=== PATIENT | male | born 1985 | race African-American/Black ===

== ENCOUNTER 2018-01-26 21:56 | Emergency (ER) | payer SELFPAY ==
[2018-01-26 22:02] VITALS: BP 158/92
[2018-01-26] MEDS ORDERED: LIDOCAINE 2% JELLY 5 ML TUBE TOP ONE (23:30)
[2018-01-26] MEDS ORDERED: AMOXICILLIN TRIHYDRATE 500 MG CAPSULE PO ONE (23:30)
--- NOTE | 2018-01-26 23:37 | ER Document Report ---
ED General - General Chief Complaint: Ear Pain Stated Complaint: EARACHE Time Seen by Provider: 01/26/18 23:16 Notes: Patient is a 32-year-old male without past medical history who presents with left ear pain for the past 1 week. Patient does described as a severe, constant throbbing pain to the left ear. He notes some loss of hearing to the ear. He has not tried anything to improve his pain. Nothing worsens this pain. He denies any drainage from the ear. No fever or constitutional symptoms although he does note that he has had some cervical chain lymphadenopathy on the left side. He has not seen his primary care doctor regarding today's concerns. He denies any history of similar symptoms in the past. TRAVEL OUTSIDE OF THE [place] IN LAST 30 DAYS: No - Related Data Allergies/Adverse Reactions: No Known Allergies Allergy (Unverified 01/26/18 21:58) Past Medical History - General Information source: Patient - Social History Smoking Status: Never Smoker Frequency of alcohol use: None Drug Abuse: None Lives with: Spouse/Significant other Family History: Reviewed & Not Pertinent Review of Systems - Review of Systems Notes: Constitutional: Negative for fever. HENT: Negative for sore throat. Positive for left ear pain Eyes: Negative for visual changes. Cardiovascular: Negative for chest pain. Respiratory: Negative for shortness of breath. Gastrointestinal: Negative for abdominal pain, vomiting or diarrhea. Genitourinary: Negative for dysuria. Musculoskeletal: Negative for back pain. Skin: Negative for rash. Neurological: Negative for headaches, weakness or numbness. 10 point ROS negative except as marked above and in HPI. Physical Exam - Vital signs Vitals: Temp Pulse Resp BP Pulse Ox 98.0 F 93 18 158/92 H 96 01/26/18 22:01 01/26/18 22:01 01/26/18 22:01 01/26/18 22:01 01/26/18 22:01 Interpretation: Hypertensive Notes: PHYSICAL EXAMINATION: GENERAL: Appears mildly uncomfortable but no acute distress HEAD: Atraumatic, normocephalic. EYES: Pupils equal round and reactive to light, extraocular movements intact, sclera anicteric, conjunctiva are normal. ENT: nares patent, oropharynx clear without exudates. Moist mucous membranes. Left TM is erythematous, bulge, without purulent effusion. Right TM is clear. NECK: Normal range of motion, left-sided anterior cervical lymphadenopathy is present LUNGS: Breath sounds clear to auscultation bilaterally and equal. No wheezes rales or rhonchi. HEART: Regular rate and rhythm without murmurs ABDOMEN: Soft, nontender, normoactive bowel sounds. No guarding, no rebound. No masses appreciated. EXTREMITIES: Normal range of motion, no pitting or edema. No cyanosis. NEUROLOGICAL: No focal neurological deficits. Moves all extremities spontaneously and on command. PSYCH: Normal mood, normal affect. SKIN: Warm, Dry, normal turgor, no rashes or lesions noted. Course - Re-evaluation Re-evalutation: 01/26/18 23:31 Patient presents with acute otitis media of the left ear. There is a bulging erythematous tympanic membrane with a purulent effusion on the left. No evidence of otitis externa. No evidence of a perforation. There is mild anterior cervical lymphadenopathy that is tender to palpation. Examination is otherwise unremarkable. Patient is otherwise extremely well in appearance. Vitals within acceptable limits. He has been started on amoxicillin and topical lidocaine for pain control. At this time will discharge with return precautions and follow-up recommendations. Verbal discharge instructions given a the bedside and opportunity for questions given. Medication warnings reviewed. Patient is in agreement with this plan and has verbalized understanding of return precautions and the need for primary care follow-up in the next 24-72 hours. - Vital Signs Vital signs: Temp Pulse Resp BP Pulse Ox 98.0 F 93 18 158/92 H 96 01/26/18 22:01 01/26/18 22:01 01/26/18 22:01 01/26/18 22:01 01/26/18 22:01 Discharge - Discharge Clinical Impression: Left otitis media Qualifiers: Otitis media type: suppurative Chronicity: acute Recurrence: not specified as recurrent Spontaneous tympanic membrane rupture: without spontaneous rupture Qualified Code(s): H66.002 - Acute suppurative otitis media without spontaneous rupture of ear drum, left ear Condition: Good Disposition: HOME, SELF-CARE Additional Instructions: You were seen today for ear pain and have an acute ear infection. Please take the antibiotic that has been prescribed until it is completed even if you are feeling better before you have finished all the antibiotics. For your pain: Take ibuprofen 600 mg and acetaminophen 1000 mg every 6 hours together as needed for pain. Return if you have worsening of your pain, loss of hearing in the affected ear, worsening facial pain, headaches, pass out, or any other symptoms that are worrisome to you. Prescriptions: Amoxicillin 1 tab PO TID #30 tab
== END 2018-01-27 00:10 | disposition home or self-care (01) ==
LOC: ER 21:56
DX: H66.002 Acute suppurative otitis media without spontaneous rupture of ear drum, left ear (principal); H92.02 Otalgia, left ear; H91.92 Unspecified hearing loss, left ear
CPT/HCPCS: 99282

== ENCOUNTER 2018-03-13 22:44 | Emergency (ER) | payer SELFPAY ==
[2018-03-13 22:58] VITALS: BP 144/87
[2018-03-14] MEDS ORDERED: CLINDAMYCIN HCL 150 MG CAPSULE PO ONE (01:00)
--- NOTE | 2018-03-14 01:07 | ER Document Report ---
ED General - General Chief Complaint: Facial Swelling Stated Complaint: FACIAL SWELLING Time Seen by Provider: 03/14/18 00:51 Notes: Patient is a 32-year-old male who presents with complaint of swelling to the left side of his face. He says it has been ongoing for proximately 2 days. He says 3 days ago he was driving he was. He is unsure if he was bit by a bug on his face. He says he does have a bug bite on his left shoulder does not have a significant amount of swelling around that area. Since swelling in his face started there is lip and then progressed to the rest of his face. No swelling below the jaw. No swelling in the neck. No difficulty breathing or swallowing. No fevers. No dental pain. He takes no medications and is otherwise healthy. TRAVEL OUTSIDE OF THE [place] IN LAST 30 DAYS: No - Related Data Allergies/Adverse Reactions: No Known Allergies Allergy (Verified 03/14/18 00:46) Past Medical History - Social History Smoking Status: Never Smoker Chew tobacco use (# tins/day): No Frequency of alcohol use: None Drug Abuse: None Family History: Reviewed & Not Pertinent Patient has suicidal ideation: No Patient has homicidal ideation: No Renal/ Medical History: Denies: Hx Peritoneal Dialysis Review of Systems - Review of Systems Notes: My Normal Review Basic REVIEW OF SYSTEMS: CONSTITUTIONAL : Denies fever, chills, or sweats. Denies recent illness. EENT: facial swelling RESPIRATORY: Denies cough, cold, or chest congestion. Denies shortness of breath, difficulty breathing, or wheezing. GASTROINTESTINAL: Denies nausea, vomiting. MUSCULOSKELETAL: Denies neck or back pain or joint pain or swelling. SKIN: Denies rash or skin lesions. Bug bite left shoulder NEUROLOGICAL: Denies altered mental status or loss of consciousness. ALL OTHER SYSTEMS REVIEWED AND NEGATIVE. Physical Exam - Vital signs Vitals: Temp Pulse Resp BP Pulse Ox 98.2 F 63 20 144/87 H 97 03/13/18 22:57 03/13/18 22:57 03/13/18 22:57 03/13/18 22:57 03/13/18 22:57 - Notes Notes: General Appearance: Well nourished, alert, cooperative, no acute distress, no obvious discomfort. Appearing. Vitals: reviewed, See vital signs table. Head: no swelling or tenderness to the head Eyes: Mild facial swelling without erythema of the skin goes from just outside the left upper lip left side of face to just below left eye. No swelling below the mandible. Mouth: No decreasd moisture Throat: No tonsillar inflammation, No airway obstruction, No lymphadenopathy Neck: Supple, no neck tenderness, no neck swelling. Skin: warm, dry, appropriate color, no rash Neuro: speech clear, oriented x 3, normal affect, responds appropriately to questions. Course - Re-evaluation Re-evalutation: 03/14/18 01:07 Patient has some swelling to left side of face and the parent is consistent with a dental infection. On exam he does have several fractured teeth over the left upper portion of his mouth. There is several dental caries. Patient is concerned possibly bug bite but he did not remember remember ever having a bug bite to his face. He does have a small bug bite over his left clavicle but there is no surrounding swelling and it should not be associate with swelling in his face. Informed the patient I will place him on clindamycin. We will have him follow-up with a dentist. I encourage him return to ER immediately if he has worsening recurrent swelling, fevers, difficulty breathing, or if she feels unwell. Patient agrees with plan will be discharged home. Dictation of this chart was performed using voice recognition software; therefore, there may be some unintended grammatical errors. - Vital Signs Vital signs: Temp Pulse Resp BP Pulse Ox 98.2 F 54 L 16 144/87 H 99 03/13/18 22:57 03/14/18 00:42 03/14/18 00:42 03/13/18 22:57 03/14/18 00:42 Discharge - Discharge Clinical Impression: Facial swelling Additional Instructions: Please return to the ER immediately if you develop worsening swelling, fevers, any swelling beneath the jaw, difficulty breathing, or difficulty swallowing. Please call around to dentists tomorrow to set up an appointment to see a dentist within 3-4 days. Prescriptions: Clindamycin HCl 300 mg PO ASDIR #56 capsule
== END 2018-03-14 01:25 | disposition home or self-care (01) ==
LOC: ER 22:44
DX: R22.0 Localized swelling, mass and lump, head (principal); S40.262A Insect bite (nonvenomous) of left shoulder, initial encounter; W57.XXXA Bitten or stung by nonvenomous insect and other nonvenomous arthropods, initial encounter
CPT/HCPCS: 99283